=== PATIENT | male | born 1990 | race Caucasian/White ===

== ENCOUNTER 2017-08-22 22:00 | Emergency (ER) | payer SELFPAY ==
[~2017-08-22] VITALS: Ht 177.8 cm; Wt 100.0 kg
[~2017-08-22 22:00] MED LIST: CYCL5TAB PO; DICL-86 PO; Z.0.NO CURRENT MEDS
[2017-08-22 22:04] VITALS: BP_SYST 141; BP_SYST 41; BP_DIAS 89; PULSE 68; RESP 16; TEMP 97.1; O2SAT 96
--- NOTE | 2017-08-22 22:19 | PD ---
HPI Chief Complaint: Respiratory Symptoms Time Seen by Provider: 22:12 Travel History International Travel<30 days: No Contact w/Intl Traveler<30days: No Traveled to known affect area: No History of Present Illness HPI 27-year-old male with history of asthma presents to the [facility] department for evaluation of worsening wheezing and shortness of breath over the last 3 days. Patient denies any fever or chills. No cough. States that his inhaler is not helping alleviate symptoms. He denies any pain. He has no other symptoms to report. PFSH Past Medical History Asthma: Yes Diminished Hearing: No Respiratory: Yes (asthma) Social History Alcohol Use: Yes (OCCASIONAL) Tobacco Use: Yes (1/2 DAY) Substance Use: Yes ("WEED AT LEAST EVERY OTHER DAY") Allergies-Medications (Allergen,Severity, Reaction): Coded Allergies: shrimp (Unverified Allergy, Mild, 03/22/17) Uncoded Allergies: NO DRUG ALLERGIES (Adverse Reaction, Mild, 06/15/07) Reported Meds & Prescriptions Reported Meds & Active Scripts Active Prednisone 50 Mg Tab 50 Mg PO DAILY 5 Days Duoneb (Ipratropium-Albuterol Neb) 0.5-2.5 Mg/3 Ml Neb 1 Nebule INH Q6HR NEB PRN Ventolin Hfa 18 GM Inh (Albuterol Sulfate) 90 Mcg/Act Aer 2 Puff INH Q4HR PRN Reported Ventolin Hfa 18 GM Inh (Albuterol Sulfate) 90 Mcg/Act Aer 2 Puff INH Q4-6H PRN Albuterol Neb (Albuterol Sulfate) 2.5 Mg/0.5 Ml Neb 2.5 Mg NEB Q4HR NEB PRN Note: The Albuterol Sulfate Inhalation Solution is concentrated and must be diluted. Read complete instructions carefully before using. Review of Systems Except as stated in HPI: all other systems reviewed are Neg Physical Exam Narrative GENERAL: Well-nourished, well-developed male patient in no acute distress. SKIN: Focused skin assessment warm/dry. HEAD: Normocephalic. EYES: No scleral icterus. No injection or drainage. NECK: Supple, trachea midline. No JVD or lymphadenopathy. CARDIOVASCULAR: Regular rate and rhythm without murmurs, gallops, or rubs. RESPIRATORY: Breath sounds equal bilaterally. Inspiratory and expiratory wheeze. Diminished bases No accessory muscle use. GASTROINTESTINAL: Abdomen soft, non-tender, nondistended. MUSCULOSKELETAL: No cyanosis, or edema. BACK: Nontender without obvious deformity. No CVA tenderness. Data Data Last Documented VS Vital Signs Date Time Temp Pulse Resp B/P (MAP) Pulse Ox O2 Delivery O2 Flow Rate FiO2 08/22/17 23:49 68 16 151/91 (111) 97 08/22/17 22:23 Nasal Cannula 2.00 08/22/17 22:04 97.1 Orders Orders Chest, Single Ap (08/22/17 ) Oximetry (08/22/17 22:21) Albuterol-Ipratropium Neb (Duoneb Neb) (08/22/17 22:30) Dexamethasone Inj (Decadron Inj) (08/22/17 22:30) Ed Discharge Order (08/22/17 23:38) MDM Medical Decision Making Medical Screen Exam Complete: Yes Emergency Medical Condition: Yes Medical Record Reviewed: Yes Differential Diagnosis Asthma exacerbation versus pneumonia versus influenza versus bronchitis Narrative Course 27-year-old male presents to emergency department for evaluation shortness of breath. Patient does have a history of asthma. Chest x-ray confirms no acute cardiopulmonary disease. Patient is given IM Decadron. DuoNeb's 3 are ordered. Upon reassessment, patient's breath sounds have improved significantly. He states that he feels much better and is ready for discharge home. He'll be discharged home with additional breathing treatments and oral steroids. He agrees to return immediately with any acute worsening symptoms. Diagnosis Primary Impression: Asthma exacerbation Qualified Codes: J45.41 - Moderate persistent asthma with (acute) exacerbation Referrals: Primary Care Physician Patient Instructions: Asthma (ED), General Instructions Additional Instructions: Follow-up with a primary care provider Return immediately with acute worsening of symptoms Med/Other Pt SpecificInfo: Prescription(s) given Scripts Prednisone (Prednisone) 50 Mg Tab 50 MG PO DAILY for 5 Days, #5 TAB 0 Refills Prov: Jillian Orozco 08/22/17 Ipratropium-Albuterol Neb (Duoneb) 0.5-2.5 Mg/3 Ml Neb 1 NEBULE INH Q6HR NEB Y for SOB/WHEEZING, #120 NEBULE 0 Refills Prov: Jillian Orozco 08/22/17 Albuterol 18 GM Inh (Ventolin Hfa 18 GM Inh) 90 Mcg/Act Aer 2 PUFF INH Q4HR Y for SHORTNESS OF BREATH, #1 INHALER 0 Refills Prov: Jillian Orozco 08/22/17 Disposition: 01 DISCHARGE HOME Condition: Stable Jillian Orozco Aug 22, 2017 22:19
[2017-08-22] MEDS ORDERED: ALBU.5I NEB (22:21)
[2017-08-22] MEDS ORDERED: VENTAER INH ×2 (22:21→23:40)
[2017-08-22 22:23] VITALS: RESP 18; O2SAT 98
[2017-08-22] MEDS ORDERED: DEXAMETHASONE SOD PHOS 4 MG/ML VIAL IM ONE (22:30)
--- NOTE | 2017-08-22 22:36 | RADRPT ---
EXAM DATE/TIME: 08/22/2017 22:26 [place] COMPARISON: No previous studies available for comparison. INDICATIONS : Shortness of breath. MEDICAL HISTORY : Asthma. SURGICAL HISTORY : None. ENCOUNTER: Initial ACUITY: 1 day PAIN SCORE: 0/10 LOCATION: Bilateral chest FINDINGS: A single view of the chest demonstrates the lungs to be symmetrically aerated without evidence of mas s, infiltrate or effusion. The cardiomediastinal contours are unremarkable. Osseous structures are intact. CONCLUSION: Normal examination. Tito Boyer Jr., MD on August 22, 2017 at 22:34 Board Certified Radiologist. This report was verified electronically.
[2017-08-22] MEDS: RESP: ALBUTEROL 2.5 MG/IPRATROPIUM 0.5 MG NEB (SCH) INH (23:08)
[2017-08-22] MEDS ORDERED: PRED50 PO (23:40)
[2017-08-22] MEDS ORDERED: IPRASOL INH (23:40)
[2017-08-22 23:49] VITALS: BP 151/91; PULSE 68; RESP 16; O2SAT 97
== END 2017-08-23 00:14 | disposition home or self-care (01) ==
LOC: NEPD 22:00
DX: J45.41 Moderate persistent asthma with (acute) exacerbation (principal); F17.200 Nicotine dependence, unspecified, uncomplicated
CPT/HCPCS: 71045; 94640; 94664; 96372; 99285; J1100